=== PATIENT | male | born 1970 | race Caucasian/White ===

== ENCOUNTER 2018-09-22 15:14 | Emergency (ER) | payer OTHER | END 2018-09-22 17:26 | disposition home or self-care (01) | LOC: JER 15:14 → JERFT 17:26 ==

== ENCOUNTER 2019-12-12 09:45 | Emergency (ER) | payer OTHER ==
[2019-12-12 09:52] VITALS: BP 115/68; PULSE 71; TEMP 97.6; BMI 20.5
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
== END 2019-12-12 11:53 | disposition home or self-care (01) ==
LOC: JERFT 09:45
DX: M54.5 Low back pain (principal); M54.2 Cervicalgia; M79.641 Pain in right hand
CPT/HCPCS: 72040-TC; 72100-TC-FY; 73110-TC-RT-FY; 73130-TC-RT-FY; 99285-25

== ENCOUNTER 2021-09-06 07:02 | Emergency (ER) | payer OTHER ==
[2021-09-06 07:19] VITALS: BP 121/78; PULSE 64; TEMP 98; BMI 20.5
[2021-09-06] MEDS ORDERED: DIPHTH,PERTUSS(ACELL),TET 0.5 ML DISP.SYRIN IM ONE (10:30)
== END 2021-09-06 11:39 | disposition home or self-care (01) ==
LOC: JER 07:02
PROC: 3E0234Z Introduction of Serum, Toxoid and Vaccine into Muscle, Percutaneous Approach (ICD-10-PCS; principal; 2021-09-06)
DX: S00.03XA Contusion of scalp, initial encounter (principal); V13.4XXA Pedal cycle driver injured in collision with car, pick-up truck or van in traffic accident, initial encounter
CPT/HCPCS: 70450-TC; 71045-TC-FY; 71250-TC; 72125-TC; 72170-TC-FY; 73030-TC-LT-FY; 73070-TC-LT-FY; 73110-TC-LT-FY; 73130-TC-LT-FY; 74176-TC; 99285-25